=== PATIENT | female | born 2000 | race Caucasian/White ===

== ENCOUNTER 2024-05-23 17:13 | Emergency (ER) | payer OTHER ==
[2024-05-23] MEDS ORDERED: NA CHLORIDE 0.9% 1,000 ML ONE (18:32)
[2024-05-23 18:41] LABS: Absolute Basophils 0.1 K/uL (0-0.5); Absolute Eosinophils 0.1 K/uL (0-0.5); Absolute Lymphocytes (CBC) 2.9 K/uL (0.7-4.9); Absolute Monocytes 0.9 K/uL (0.1-1.3); Absolute Neutrophil 4.8 K/uL (1.8-8.0); Basophils % 0.7 % (0-1.3); Eosinophils % 0.9 % (0-4.4); Hematocrit 40.4 % (36.0-45.0); Hemoglobin 13.8 g/dL (12.0-15.0); Lymphocytes % 33.1 % (15.3-44.8); MCH 30.8 pg (27.0-35.0); MCV 90.4 fL (80-100); MPV 8.5 fL (7.6-11.3); Monocytes % 9.9 % (3.3-12.3); Neutrophils % 55.4 % (41.7-73.7); Nucleated Red Blood Cells % 0.2 % (0-0); Platelets 244 thou/uL (152-406); RBC Red Blood Cell Count 4.48 M/uL (3.86-4.86); Red Cell Distribution Width 13.5 % (12.1-15.2)
[2024-05-23 18:44] LABS: Specific Gravity 1.012 (1.005-1.030)
[2024-05-23 19:06] LABS: ALT/SGPT 20 U/L (13-56); AST/SGOT 15 U/L (15-37); Albumin 3.5 g/dL (3.4-5.0); Albumin/Globulin Ratio 0.9 (1.1-1.8); Alkaline Phosphatase 67 U/L (45-117); Anion Gap 8.8 mEq/L (5.0-15.0); BUN Blood Urea Nitrogen 10 mg/dL (7-18); Bicarbonate 24 mEq/L (21-32); Bilirubin Total 0.4 mg/dL (0.2-1.0); Globulin 3.8 g/dL (2.3-3.5); Glomerular Filtration Rate 111 ml/min (=/>90); Glucose Level 92 mg/dL (74-106); Magnesium 2.2 mg/dL (1.6-2.4); Potassium 3.8 mEq/L (3.5-5.1); Protein, Total 7.3 g/dL (6.4-8.2); Sodium Level 138 mEq/L (136-145)
[2024-05-23 19:09] LABS: Bilirubin Direct < 0.2 mg/dL (0-0.2); Bilirubin Indirect, Calculated 0.2 mg/dL (0.2-0.8); Troponin High Sensitivity < 3.0 pg/mL (<58.9)
[2024-05-23 19:13] LABS: Barbiturates NEGATIVE (NEGATIVE); Benzodiazepines NEGATIVE (NEGATIVE); Cocaine NEGATIVE (NEGATIVE); METHAMPHETAM NEGATIVE (NEGATIVE); Methadone NEGATIVE (NEGATIVE); Opiates NEGATIVE (NEGATIVE); Phencyclidine NEGATIVE (NEGATIVE); THC Cannibis NEGATIVE (NEGATIVE)
--- NOTE | 2024-05-23 19:19 | RAD REPORT ---
EXAM: CT brain without contrast HISTORY: SYNCOPE COMPARISON: None TECHNIQUE: Multiple contiguous axial images were obtained and a CT of the brain without contrast. Sag ittal and coronal reformats were performed. FINDINGS: No evidence of hydrocephalus, intracranial hemorrhage, or extra-axial fluid collection. The brain is normal in morphology. The calvarium is intact. The visualized paranasal sinuses and mastoid air cells are essentially clear . IMPRESSION: No evidence of acute intracranial abnormality. EXAM: CT of the cervical spine without contrast HISTORY: SYNCOPE COMPARISON: None TECHNIQUE: Multiple contiguous axial images were obtained in a CT of the cervical spine without contr ast. Sagittal and coronal reformats were performed. FINDINGS: The vertebral bodies demonstrate normal height and alignment. No evidence of acute fracture or subluxation.. No degenerative changes are present. No prevertebral soft tissue swelling is seen. The posterior facets are well aligned. Normal alignment of the skull base with the cervical spine is seen. The lung apices are unremarkable. IMPRESSION: No evidence of acute osseous abnormality of the cervical spine.
--- NOTE | 2024-05-23 19:29 | RAD REPORT ---
EXAMINATION: CT MAXILLOFACIAL WITHOUT CONTRAST CLINICAL INDICATION[facility] Bed Name: [id number] TECHNIQUE: Axial images were obtained through the facial bones and orbits without intravenous contras t. Sagittal and coronal reconstructions were created from the data. One or more of the following dose reduction techniques were used: Automated exposure control, adjustment of the mA and/or kV accor ding to patient size, and/or iterative reconstruction. Unless otherwise specified, incidental findings do not require dedicated imaging follow-up. COMPARISON: No prior exam. FINDINGS: SOFT TISSUE: No significant abnormalities. BONES: No evidence of fracture, dislocation, or aggressive osseous lesions. No lesion of the visuali zed skull base or calvarium. ORBITS: The globes are intact. No intraorbital hemorrhage or mass. SINUSES: The paranasal sinuses and tympanomastoid cavities are predominantly clear. IMPRESSION: No acute facial fractures.
--- NOTE | 2024-05-23 19:30 | RAD REPORT ---
EXAMINATION: ONE VIEW CHEST XR CLINICAL INDICATION: Female, 23 years old.,CHEST PAIN TECHNIQUE: Frontal chest projection is submitted. Examination is limited by patient positioning and t echnique. COMPARISON: No prior exam. FINDINGS: The lungs are well inflated and clear. No pneumothorax or sizable effusion. The heart is normal in s ize. Mediastinal contours are unremarkable. IMPRESSION: No acute intrathoracic abnormalities.
--- NOTE | 2024-05-23 20:01 | EDPHYS ---
Physician Documentation [facility] Name: Brady Valdez Age: 23 yrs Sex: Female : 2000 Arrival Date: 05/23/2024 Time: 17:13 Bed 12 Private MD: ED Physician Eddie Vázquez HPI: 05/23 17:48 This 23 yrs old Female presents to ER via Ambulatory with complaints of Passed Out sb4 Prior To Arrival - facial injury. 17:48 The patient has experienced syncope, collapsed, lost consciousness. Onset: The sb4 symptoms/episode began/occurred 6 hour(s) ago. Duration: This was a single episode, that lasted 2 minute(s). Context: the episode(s) was witnessed, by co-worker(s), occurred at work, occurred while the patient was working, Just prior to the episode the patient experienced. Associated injury: Head/face: abrasion. Associated signs and symptoms:. Current symptoms: Currently, the patient is not experiencing any symptoms. The patient has experienced similar episodes in the past, several times. Patient states that she frequently experiences vasovagal syncope when she sees blood or wounds. 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 Today she saw a patient's wound started to feel dizzy, and collapsed, hit her face on the ground. States that she feels completely normal now but her family wanted her to be evaluated given that she hit her face and was "unconscious" for 2 minutes. 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 - Infectious Disease History:: Denies. - Social history:: Smoking status: Reported history of juuling and/or vaping. ROS: 17:50 Constitutional: Negative for fever, chills, and weight loss, sb4 17:50 MS/extremity: Positive for abrasion, of the left yarsani, 17:50 Neuro: Positive for syncope, 17:50 All other systems are negative, Exam: 17:50 Constitutional: This is a well developed, well nourished patient who is awake, alert, sb4 and in no acute distress. Eyes: Extra-ocular motions intact. Periorbital areas with no swelling, redness, or edema. ENT: Mucous membranes moist. Cardiovascular: Regular rate and rhythm with a normal S1 and S2. Respiratory: No increased work of breathing, no retractions or nasal flaring. Abdomen/GI: Soft, non-tender, no distension. Skin: Warm, dry with normal turgor. Normal color with no rashes, no lesions, and no evidence of cellulitis. MS/ Extremity: Pulses equal, no cyanosis. Neurovascular intact. Full, normal range of motion. Neuro: Awake and alert, GCS 15, oriented to person, place, time, and situation. Motor strength 5/5 in all extremities. Sensory grossly intact. 17:50 Head/face: Noted is abrasion(s), that are mild, of the left yarsani, Vital Signs: 17:30 BP 137 / 93; Pulse 99; Resp 16; Temp 97; Pulse Ox 99% on R/A; Weight 81.65 kg; Height 5 iw ft. 4 in. ; 20:37 BP 118 / 75; Pulse 74; Resp 16; Pulse Ox 97% on R/A; iw 17:30 Body Mass Index 30.90 (81.65 kg, 162.56 cm) iw MDM: 17:34 Medical Screening Exam initiated sb4 20:03 Data reviewed: vital signs, nurses notes, lab test result(s), EKG, radiologic studies, sb4 and as a result, I will discharge patient. 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 05/23 17:43 Order name: Basic Metabolic Panel; Complete Time: 19:19 sb4 05/23 17:43 Order name: CBC with Diff; Complete Time: 18:47 sb4 05/23 17:43 Order name: Hepatic Function; Complete Time: 19:19 sb4 05/23 17:43 Order name: Magnesium; Complete Time: 19:19 sb4 05/23 17:43 Order name: Test, Urine; Complete Time: 18:48 sb4 05/23 17:43 Order name: Troponin High Sensitivity; Complete Time: 19:19 sb4 05/23 17:43 Order name: UDS; Complete Time: 19:19 sb4 05/23 17:43 Order name: TSH; Complete Time: 19:19 sb4 05/23 17:43 Order name: CT Head C Spine; Complete Time: 19:20 sb4 05/23 17:43 Order name: Chest Single View XRAY; Complete Time: 19:30 sb4 05/23 17:43 Order name: Facial Bones W/O Con CT; Complete Time: 19:30 sb4 05/23 17:43 Order name: EKG; Complete Time: 17:43 sb4 05/23 17:43 Order name: Cardiac monitoring; Complete Time: 19:42 sb4 05/23 17:43 Order name: EKG - Nurse/Tech; Complete Time: 19:42 sb4 05/23 17:43 Order name: IV Saline Lock; Complete Time: 18:36 sb4 05/23 17:43 Order name: Labs collected and sent; Complete Time: 18:36 sb4 05/23 17:43 Order name: O2 Per Protocol; Complete Time: 18:36 sb4 05/23 17:43 Order name: O2 Sat Monitoring; Complete Time: 18:36 sb4 05/23 17:43 Order name: Orthostatics sb4 Administered Medications: 18:39 Drug: NS 0.9% IV 1000 ml IV at 1 bolus Per protocol; to be given as a bolus over 60 iw minutes Route: IV; Rate: 1 bolus; Site: right antecubital; 19:45 Follow up: IV Status: Completed infusion iw Disposition: 20:54 Co-signature as Attending Physician, Eddie Vázquez MD I reviewed the patient's care rt provided by the Advanced Practice Provider and agree with the diagnosis and treatment plan. Disposition Summary: 05/23/24 20:00 Discharge Ordered Notes: Location: Home sb4 Problem: new sb4 Symptoms: have improved sb4 Condition: Stable sb4 Diagnosis - Vasovagal syncope sb4 Followup: sb4 - With: Sukhdeep Stauffer MD - When: 1 week - Reason: Further diagnostic work-up, Recheck today's complaints, Re-evaluation by your physician Discharge Instructions: - Discharge Summary Sheet sb4 - Syncope, [id number] sb4 Forms: - Patient Portal Instructions sb4 - Leadership Thank You Letter sb4 Signatures: Dispatcher [employer] Marcela Valdez, RN RN Priyanka Cunha, PACandyC RAVINDER sb4 Eddie Vázquez MD MD rt Corrections: (The following items were deleted from the chart) 17:31 17:30 PSHx: None; smita ordoñez
--- NOTE | 2024-05-23 20:01 | ER ---
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 Coronavirus screen: At this time, the client does not indicate any symptoms associated with coronavirus-19. Ebola Screen: No symptoms or risks identified at this time. Initial Sepsis Screen: Does the patient meet any 2 criteria? No. Patient's initial sepsis screen is negative. Does the patient have a suspected source of infection? No. Patient's initial sepsis screen is negative. Risk Assessment: Do you want to hurt yourself or someone else? Patient reports no desire to harm self or others. Onset of symptoms was May 23, 2024. 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 - Infectious Disease History:: Denies. - Social history:: Smoking status: Reported history of juuling and/or vaping. Screenin:24 [facility] ED Fall Risk Assessment (Adult) History of falling in the last 3 months, iw including since admission No falls in past 3 months (0 pts) Confusion or Disorientation No (0 pts) Intoxicated or Sedated No (0 pts) Impaired Gait No (0 pts) Mobility Assist Device Used No (0 pt) Altered Elimination No (0 pt) Score/Fall Risk Level 0 - 2 = Low Risk Oriented to surroundings, Maintained a safe environment. Abuse screen: Denies threats or abuse. Denies injuries from another. Nutritional screening: No deficits noted. Tuberculosis screening: No symptoms or risk factors identified. Assessment: 18:23 General: Appears in no apparent distress. Behavior is calm, cooperative. Pain: iw Complains of pain in face and left samaritan. Neuro: Level of Consciousness is awake, alert, obeys commands, Oriented to person, place, time, situation, Moves all extremities. Full function. Cardiovascular: Patient's skin is warm and dry. Respiratory: Respiratory effort is even, unlabored, Respiratory pattern is regular. GI: Abdomen is non-distended. Derm: Skin is intact, is healthy with good turgor. Musculoskeletal: Range of motion: intact in all extremities. Vital Signs: 17:30 BP 137 / 93; Pulse 99; Resp 16; Temp 97; Pulse Ox 99% on R/A; Weight 81.65 kg; Height 5 iw ft. 4 in. ; 20:37 BP 118 / 75; Pulse 74; Resp 16; Pulse Ox 97% on R/A; iw 17:30 Body Mass Index 30.90 (81.65 kg, 162.56 cm) iw ED Course: 17:18 Patient arrived in ED. ra3 17:30 Triage completed. iw 17:30 Priyanka Beltrán PA-C is PHCP. sb4 17:30 Eddie Vázquez MD is Attending Physician. sb4 17:31 Arm band placed on. iw 18:09 CT Head C Spine In Process Unspecified. EDMS 18:09 Facial Bones W/O Con CT In Process Unspecified. EDMS 18:23 Marcela Fontana, RN is Primary Nurse. iw 18:34 Chest Single View XRAY In Process Unspecified. EDMS 18:36 Initial lab(s) drawn, by mn, sent to lab. Urine collected: straight cath specimen, iw clear. Inserted saline lock: 22 gauge in right antecubital area, using aseptic technique. Blood collected. Flushed with 10 mL NS. 20:00 Sukhdeep Stauffer MD is Referral Physician. sb4 20:37 Patient has correct armband on for positive identification. iw 20:37 No provider procedures requiring assistance completed. IV discontinued, intact, iw bleeding controlled, No redness/swelling at site. Pressure dressing applied. Administered Medications: 18:39 Drug: NS 0.9% IV 1000 ml IV at 1 bolus Per protocol; to be given as a bolus over 60 iw minutes Route: IV; Rate: 1 bolus; Site: right antecubital; 19:45 Follow up: IV Status: Completed infusion iw Medication: 18:24 VIS not applicable for this client. iw Outcome: 20:00 Discharge ordered by MD. herrera 20:37 Discharged to home ambulatory, with family, iw 20:37 Condition: good 20:37 Discharge instructions given to patient, Instructed on discharge instructions, follow up and referral plans. Demonstrated understanding of instructions, follow-up care, 20:38 Patient left the ED. iw Signatures: Dispatcher [employer] Marcela Valdez RN RN Priyanka Cunha, PA-C PACandyC [id number] Katelyn Howard ra3 Corrections: (The following items were deleted from the chart) 17:31 17:30 PSHx: None; iw iw 17:32 17:30 BP 137 / 93; Pulse 99bpm; Resp 16bpm; Pulse Ox 99% RA; Temp 97F; iw iw
[2024-05-23 20:47] VITALS: TEMP 97
[2024-05-23 20:53] VITALS: BP 118/75; O2SAT 97
== END 2024-05-23 20:38 | disposition home or self-care (01) ==
LOC: ER 17:13
DX: R55 Syncope and collapse (principal); S00.81XA Abrasion of other part of head, initial encounter
CPT/HCPCS: 93005; 85025; 80048; 36415; 83735; 81025; 80076; 84443; 84484; 80307; 70450; 72125; 70486; 76377; 71045; 96360; 99284; J7030